=== PATIENT | male | born 1970 | race Two or more races ===

== ENCOUNTER 2024-09-13 09:29 | Inpatient (IN) | payer MEDICAID, OTHER ==
[~2024-09-13] VITALS: Ht 175.3 cm; Wt 89.3 kg
--- NOTE | 2024-09-13 09:51 | ED.PDOC ---
History of Present Illness HPI Comments 53Y M presents to ED for chief complaint lower abd pain [id number]. Pt states abd pain occasionally radiates to testicle region. Pt denies chest pain, SOB, and n/v/d. Pt has taken Ibuprofen and Nexium without relief. No other symptoms reported. Chief Complaint: Abdominal Pain Time Seen by MD: 09:41 Reviewed Notes: Nurses Notes, Medications, Allergies Allergies: Coded Allergies: NO KNOWN ALLERGIES (Unverified , 09/13/24) Information Source: Patient Mode of Arrival: Ambulatory Severity: Mild Timing: Months Duration: Since onset Past Medical History PAST MEDICAL HISTORY: Denies Surgical History: Tonsillectomy Family History Family History: Unknown Social History Smoker: Non-Smoker Alcohol: Denies ETOH Use Drugs: Denies Drug Use Lives In: Home Constitutional: denies: chills, diaphoresis, fatigue, fever, malaise, sweats, weakness, others EENTM: denies: blurred vision, double vision, ear bleeding, ear discharge, ear drainage, ear pain, ear ringing, eye pain, eye redness, hearing loss, mouth pain, mouth swelling, nasal discharge, nose bleeding, nose congestion, nose pain, photophobia, tearing, throat pain, throat swelling, voice changes, others Respiratory: denies: cough, hemoptysis, orthopnea, SOB at rest, shortness of breath, SOB with excertion, stridor, wheezing, others Cardiovascular: denies: chest pain, dizzy spells, diaphoresis, Dyspnea on exe rtion, edema, irregular heart beat, left arm pain, lightheadedness, palpitations, PND, syncope, others Gastrointestinal: reports: abdominal pain; denies: abdomen distended, blood streaked bowels, constipated, diarrhea, dysphagia, difficulty swallowing, hematemesis, melena, nausea, poor appetite, poor fluid intake, rectal bleeding, rectal pain, vomiting, others Genitourinary: reports: testicle pain; denies: burning, dysuria, flank pain, frequency, hematuria, incontinence, penile discharge, penile sore, pain, testicle swelling, urgency, others Neurological: denies: dizziness, fainting, headache, left sided numbness, left sided weakness, numbness, paresthesia, pre-existing deficit, right sided numbness, right sided weakness, seizure, speech problems, tingling, tremors, weakness, others Musculoskeletal: denies: back pain, gout, joint pain, joint swelling, muscle pain, muscle stiffness, neck pain, others Integumetry: denies: bruises, change in color, change in hair/nails, dryness, laceration, lesions, lumps, rash, wounds, others Allergic/Immunocompromised: denies: Difficulty Healing, Frequent Infections, Hives, Itching, others Hematologic/Lymphatic: denies: anemia, blood clots, easy bleeding, easy bruising, swollen glands, others Endocrine: denies: excessive hunger, excessive sweating, excessive thirst, excessive urination, flushing, intolerance to cold, intolerance to heat, unexplained weight gain, unexplained weight loss, others Psychiatric: denies: anxiety, bipolar disorder, depression, hopeless, panic disorder, schizophrenia, sleepless, suicidal, others All Other Systems: Reviewed and Negative Physical Exam General Appearance: No Apparent Distress, Normal HEENT: Normal ENT Inspection, Pharynx Normal, TMs Normal Neck: Full Range of Motion, Non-Tender, Normal, Normal Inspection Respiratory: Chest Non-Tender, Lungs Clear, No Accessory Muscle Use, No Respiratory Distress, Normal Breath Sounds Cardiovascular: No Edema, No JVD, No Murmur, No Gallop, Normal Peripheral Pulses, Regular Rate/Rhythm Breast Exam: Deferred Gastrointestinal: LLQ, No Pulsatile Mass, RLQ, Tenderness Genitalia: Deferred Pelvic: Deferred Rectal: Deferred Extremities: No calf tenderness, Normal capillary refill, Normal inspection, Normal range of motion, Non-tender, No pedal edema Musculoskeletal : Apperance: Normal Neurologic: Alert, dialysis patient care technician II-XII nml as Tested, No Motor Deficits, Normal Affect, Normal Mood, No Sensory Deficits Cerebellar Function: NOT DONE Reflexes: NOT DONE Skin: Dry, Normal Color, Warm Lymphatic: No Adenopathy Was a procedure done? Was a procedure done?: No Differential Dx Considerations may include: Electrolyte abnormality, viral syndrome, gastritis, gastroenteritis, colitis X-Ray, Labs, Meds, VS Vital Signs Date Time Temp Pulse Resp B/P (MAP) Pulse Ox O2 Delivery O2 Flow Rate FiO2 09/13/24 11:57 97.1 71 18 126/85 (99) 96 97.1 09/13/24 10:52 70 16 120/77 09/13/24 10:19 76 18 136/85 09/13/24 10:00 76 18 97 Room Air* 0 21 09/13/24 10:00 98.6 76 16 136/85 (102) 97 98.6 09/13/24 09:40 97.0 75 18 149/87 (107) 98 09/13/24 09:38 79 Lab Test 09/13/24 10:49 09/13/24 10:10 09/13/24 09:53 Range/Units Troponin I High Sensitivity < 3 L < 3 L </=54 ng/L Urine Color Light-yellow Yellow Urine Clarity Clear Clear Urine pH 7.5 5.0-9.0 Urine Specific [place] 1.020 1.001-1.035 Urine Protein Negative Negative Urine Ketones Negative Negative Urine Blood Negative Negative /uL Urine Nitrite Negative Negative Urine Bilirubin Negative Negative Urine Urobilinogen Normal Negative mg/dL Urine Leukocyte Esterase Negative Negative /uL Urine RBC 2 0 - 3 /hpf Urine Microscopic WBC < 1 0-3 /HPF Urine Squamous Epithelial Cells Few <5 /hpf Urine Bacteria None seen None Seen /hpf Urine Glucose Normal Normal mg/dL White Blood Count 5.1 4.4-10.8 10^3/uL Red Blood Count 5.39 4.5-5.90 10^6/uL Hemoglobin 16.4 13.5-17.5 g/dL Hematocrit 49.4 41.0-53.0 % Mean Corpuscular Volume 91.7 80.0-100.0 fL Mean Corpuscular Hemoglobin 30.4 28.0-32.0 pg Mean Corpuscular Hemoglobin Concent 33.2 32.0-36.0 g/dL Red Cell Distribution Width 13.6 11.8-14.3 % Platelet Count 283 140-450 10^3/uL Mean Platelet Volume 7.6 6.9-10.8 fL Neutrophils (%) (Auto) 67.2 37.0-80.0 % Lymphocytes (%) (Auto) 19.3 10.0-50.0 % Monocytes (%) (Auto) 10.5 0.0-12.0 % Eosinophils (%) (Auto) 2.4 0.0-7.0 % Basophils (%) (Auto) 0.6 0.0-2.0 % Neutrophils # (Auto) 3.4 1.6-8.6 10 ^3/uL Lymphocytes # (Auto) 1.0 0.4-5.4 10 ^3/uL Monocytes # (Auto) 0.5 0-1.3 10 ^3/uL Eosinophils # (Auto) 0.1 0-0.8 10 ^3/uL Basophils # (Auto) 0 0-0.2 10 ^3/uL Nucleated Red Blood Cells 0.1 % Sodium Level 138 136-145 mmol/L Potassium Level 4.2 3.5-5.1 mmol/L Chloride Level 102 98-107 mmol/L Carbon Dioxide Level 30 20-31 mmol/L Anion Gap 6 5-15 Blood Urea Nitrogen 18 9-23 mg/dL Creatinine 0.95 0.700-1.30 mg/dL Glomerular Filtration Rate Calc 95 >90 mL/min BUN/Creatinine Ratio 18.9 10.0-20.0 Serum Glucose 107 H 74-106 mg/dL Lactic Acid Level 1.1 0.4-2.0 mmol/L Calcium Level 10.2 8.7-10.4 mg/dL Total Bilirubin 0.6 0.2-1.0 mg/dL Aspartate Amino Transferase (AST) 15 13-40 U/L Alanine Aminotransferase (ALT) 19 7-40 U/L Alkaline Phosphatase 84 46-116 U/L B-Type Natriuretic Peptide 6.77 0-100 pg/mL Total Protein 7.5 5.7-8.2 g/dL Albumin 4.6 3.2-4.8 g/dL Current Medications Medications (Trade) Dose Ordered Sig/Antony Route Start Time Stop Time Status Last Admin Sodium Chloride 1,000 ml @ 1,000 mls/hr Q1H ONCE IV 09/13/24 09:45 09/13/24 10:44 DC 09/13/24 10:13 Ondansetron HCl (Zofran) 4 mg ONCE ONCE IV 09/13/24 09:45 09/13/24 10:08 DC 09/13/24 10:18 Morphine Sulfate 4 mg ONCE ONCE IV 09/13/24 09:45 09/13/24 10:08 DC 09/13/24 10:19 [facility] [id number] [place] [id number] Ph: [phone] DIAGNOSTIC IMAGING Diagnostic Imaging Report : [id number] Signed PATIENT: DESHAWN COREASUROACCT: [id number] UNIT: [id number] : 1970 LOC: ER ROOM / BED: / AGE / SEX: 53 / M ADM STATUS: REG ER SERVICE ORDERING PHYSICIAN: AMI WINN MD PROCEDURE(s): CXR2 - CHEST TWO VIEWS ROUTINE REASON: abdominal pain ORDER NUMBER(s): [id number], ACCESSION NUMBER(s): [id number] CHEST TWO VIEWS ROUTINE CLINICAL HISTORY: abdominal pain COMPARISON: None TECHNIQUE: Frontal and lateral view of the chest was obtained FINDINGS: Lines and Tubes: None Lungs: No focal consolidation. Pleura: No effusion. No pneumothorax. Cardiomediastinal contours: Unremarkable Bones: No acute osseous abnormality. IMPRESSION: No acute cardiopulmonary disease. ATED BY: CHITO BAKER MD DICTATED DATE/TIME: 09/13/24 1011 SIGNED BY: CHITO BAKER MD SIGNED DATE/TIME: 09/13/24 1011 CC: [place] [id number] Ph: [phone] DIAGNOSTIC IMAGING Diagnostic Imaging Report : [id number] Signed PATIENT: CHRISTOPHER COREAST: [id number] UNIT: [id number] : 1970 LOC: ER ROOM / BED: / AGE / SEX: 53 / M ADM STATUS: REG ER SERVICE ORDERING PHYSICIAN: AMI WINN MD PROCEDURE(s): ABPLIV - CT AB PEL WITH IV CON ONLY REASON: lower abdominal pain ORDER NUMBER(s): [id number], ACCESSION NUMBER(s): [id number] Exam: CT CT AB PEL WITH IV CON ONLY History: lower abdominal pain Comparison Study: None available at time of dictation. Technique: Multidetector spiral CT of the abdomen was performed from lung bases to pubic symphysis. Axial imaging was performed with intravenous contrast following the uneventful administration of 100 ml Omnipaque 300. Coronal and sagittal multiplanar reformats were obtained from the axial data set by the technologist. Radiation Dose : 1. Abdomen/Pelvis: CTDIvol 11.98 mGy, DLP 745. mGy*cm. Findings: Lung Bases: Lung bases are clear. Visualized portions of the heart and per icardium are unremarkable. Liver: The liver is normal in size. No focal lesions. Gallbladder and Biliary Tree: Gallstone. No intrahepatic or extrahepatic biliary ductal dilatation. Spleen: Unremarkable Pancreas: The pancreas enhances normally and there are no focal lesions. The main pancreatic duct is not dilated Adrenal Glands: Unremarkable Kidneys: Kidneys enhance symmetrically. No calculi or hydronephrosis. GI tract: Small hiatal hernia. No evidence of small bowel wall thickening or abnormal dilatation to suggest bowel obstruction. Scattered colonic diverticula. No acute diverticulitis. The appendix is visualized and is normal in caliber. Peritoneum/mesentery/retroperitoneum. No evidence of free intraperitoneal air. No ascites. No evidence of suspicious lymphadenopathy. Abdominal Wall: Unremarkable. Vasculature: Abdominal aorta and main branches are unremarkable. Normal vascular enhancement. Urinary Bladder: Grossly unremarkable for degree of distention. Pelvic Organs: Prostate is enlarged measuring 5.4 cm in transverse diameter. Musculoskeletal: No aggressive focal bony lesions, acute fractures or dislocati on. Intervertebral disc degeneration at L5-S1. IMPRESSION: 1. No acute abdominal or pelvic findings. 2. Sigmoid diverticulosis without acute diverticulitis. 3. Gallstones. HS:Y ATED BY: ANN BATES MD DICTATED DATE/TIME: 09/13/241246 SIGNED BY: ANN BATES MD SIGNED DATE/TIME: 09/13/241246 CC: Time of 1ST Reevaluation: 10:11 Reevaluation 1ST: Unchanged Patient Education/Counseling: Diagnosis, Treatment Family Education/Counseling: No Family Present Departure 1 Departure Time of Disposition: 13:37 (Patient presented with abdominal pain that was concerning for possible appendicits, gastritis, cholecystitis, colitis, gastroe nteritis, sbo, or orther possible surgical emergency. Data: 1. I ordered and reviewed the result of at least 3 labs including a CBC, BMP, and Urinalysis. 2. I independently interpreted the following tests: CT Abdoment and Pelvis is concerning for benign abdomen .Risk:This patient has a high risk of morbidity due to further diagnostic testing or treatment and may suffer from an acute abdominal process disorder. Workup reveals intractable abdominal pain and abnormal EKG and patient should be admitted for further workup. and possible expert consultation. ) Impression: Primary Impression: Abnormal EKG Additional Impression: Abdominal pain Qualified Codes: R10.84 - Generalized abdominal pain Disposition: ADMITTED INPATIENT Admit to: Med Surg Condition: Serious Critical Care Note Critical Care Time?: No Stability Stability form required: No Heart Score Heart Score: Heart Score Response (Comments) Value History Moderate Suspicious [address]-Deviation 2 Age 45-64 1 Risk Factors No known risk factors 0 Troponin Normal limit 0 Total 4 I personally scribed for AMI WINN MD ([facility] on 09/13/24 at 09:51. Electronically submitted by Leslie Parker ([employer]ge). I personally scribed for AMI WINN MD ([facility]) on 09/13/24 at 10:37. Electronically submitted by Leslie Parker (Urge). I personally scribed for AMI WINN MD ([facility]) on 09/13/24 at 12:52. Electronically submitted by Leslie Parker (Urge). AMI WINN MD Sep 13, 2024 09:51
[2024-09-13 10:00] VITALS: PULSE 76; RESP 18; O2SAT 97
[2024-09-13] MEDS: SODIUM CHLORIDE 0.9% 1,000 ML IV ONE (10:13)
--- NOTE | 2024-09-13 10:14 | DVH ---
XY CHEST TWO VIEWS ROUTINE CLINICAL HISTORY: abdominal pain COMPARISON: None TECHNIQUE: Frontal and lateral view of the chest was obtained FINDINGS: Lines and Tubes: None Lungs: No focal consolidation. Pleura: No effusion. No pneumothorax. Cardiomediastinal contours: Unremarkable Bones: No acute osseous abnormality. IMPRESSION: No acute cardiopulmonary disease.
[2024-09-13 10:15] LABS: Basophils # (auto) 0 10 ^3/uL (0-0.2); Basophils % (auto) 0.6 % (0.0-2.0); Eosinophils # (auto) 0.1 10 ^3/uL (0-0.8); Eosinophils % (auto) 2.4 % (0.0-7.0); Hematocrit 49.4 % (41.0-53.0); Hemoglobin 16.4 g/dL (13.5-17.5); Lymphocytes % (auto) 19.3 % (10.0-50.0); Mean Corpuscular Hemoglobin 30.4 pg (28.0-32.0); Mean Corpuscular Hgb Conc. 33.2 g/dL (32.0-36.0); Mean Corpuscular Volume 91.7 fL (80.0-100.0); Monocytes # (auto) 0.5 10 ^3/uL (0-1.3); Monocytes % (auto) 10.5 % (0.0-12.0); Neutrophils # (auto) 3.4 10 ^3/uL (1.6-8.6); Neutrophils % (auto) 67.2 % (37.0-80.0); Nucleated Red Blood Cells % 0.1 %; Platelet Count (auto) 283 10^3/uL (140-450); Red Blood Cells 5.39 10^6/uL (4.5-5.90); Red Cell Distribution Width 13.6 % (11.8-14.3); White Blood Cell 5.1 10^3/uL (4.4-10.8)
[2024-09-13] MEDS: ONDANSETRON HCL 4 MG/2 ML VIAL IV ONE (10:18)
[2024-09-13] MEDS: MORPHINE SULFATE 4 MG/ML SYR/VIAL IV ONE (10:19)
[2024-09-13 12:06] LABS: Alanine Aminotransferase 19 U/L (7-40); Albumin 4.6 g/dL (3.2-4.8); Anion Gap 6 (5-15); Aspartate Aminotransferase 15 U/L (13-40); BUN/Creatinine Ratio 18.9 (10.0-20.0); Blood Urea Nitrogen 18 mg/dL (9-23); Calcium 10.2 mg/dL (8.7-10.4); Carbon Dioxide 30 mmol/L (20-31); Chloride 102 mmol/L (98-107); Potassium 4.2 mmol/L (3.5-5.1); Sodium 138 mmol/L (136-145)
[2024-09-13 12:07] LABS: Bilirubin, Total 0.6 mg/dL (0.2-1.0); Total Protein 7.5 g/dL (5.7-8.2)
[2024-09-13 12:09] LABS: Urine Bacteria None Seen /hpf (None Seen)
[2024-09-13 12:17] LABS: Glucose 107 mg/dL (74-106)
--- NOTE | 2024-09-13 12:50 | DVH ---
Exam: CT CT AB PEL WITH IV CON ONLY History: lower abdominal pain Comparison Study: None available at time of dictation. Technique: Multidetector spiral CT of the abdomen was performed from lung bases to pubic symphysis. Axial imaging was performed with intravenous contrast following the uneventful administration of 100 ml Omnipaque 300. Coronal and sagittal multiplanar reformats were obtained from the axial data set b y the technologist. Radiation Dose : 1. Abdomen/Pelvis: CTDIvol 11.98 mGy, DLP 745. mGy*cm. Findings: Lung Bases: Lung bases are clear. Visualized portions of the heart and pericardium are unremarkable. Liver: The liver is normal in size. No focal lesions. Gallbladder and Biliary Tree: Gallstone. No intrahepatic or extrahepatic biliary ductal dilatation. Spleen: Unremarkable Pancreas: The pancreas enhances normally and there are no focal lesions. The main pancreatic duct i s not dilated Adrenal Glands: Unremarkable Kidneys: Kidneys enhance symmetrically. No calculi or hydronephrosis. GI tract: Small hiatal hernia. No evidence of small bowel wall thickening or abnormal dilatation to s uggest bowel obstruction. Scattered colonic diverticula. No acute diverticulitis. The appendix is vi sualized and is normal in caliber. Peritoneum/mesentery/retroperitoneum. No evidence of free intraperitoneal air. No ascites. No evidenc e of suspicious lymphadenopathy. Abdominal Wall: Unremarkable. Vasculature: Abdominal aorta and main branches are unremarkable. Normal vascular enhancement. Urinary Bladder: Grossly unremarkable for degree of distention. Pelvic Organs: Prostate is enlarged measuring 5.4 cm in transverse diameter. Musculoskeletal: No aggressive focal bony lesions, acute fractures or dislocation. Intervertebral dis c degeneration at L5-S1. IMPRESSION: 1. No acute abdominal or pelvic findings. 2. Sigmoid diverticulosis without acute diverticulitis. 3. Gallstones. HS:Y
[2024-09-13 12:56] LABS: Urine Blood Negative /uL (Negative); Urine Clarity Clear (Clear); Urine Color Light-Yellow (Yellow); Urine Protein, UAD Negative (Negative); Urine Squamous Epithelial Cell FEW /hpf (<5); Urine Urobilinogen Normal (Negative); Urine WBC < 1 /HPF (0-3); Urine pH 7.5 (5.0-9.0)
[2024-09-13 13:05] LABS: Alkaline Phosphatase 84 U/L (46-116)
[2024-09-13] MEDS ORDERED: ACETAMINOPHEN 325 MG TAB PO PRN (15:00)
[2024-09-13] MEDS ORDERED: MORPHINE SULFATE INJ 2 MG/ml SYRG IV PRN (15:00)
[2024-09-13] MEDS ORDERED: DOCUSATE SOD 100 MG CAP PO PRN (15:00)
[2024-09-13] MEDS ORDERED: NITROGLYCERIN 0.4 MG SL TAB SL PRN (15:00)
[2024-09-13] MEDS ORDERED: ONDANSETRON HCL 4 MG/2 ML VIAL IV PRN (15:00)
--- NOTE | 2024-09-13 15:07 | DVHHP2 ---
History of Present Illness Reason for Visit: Abdominal pain History of Present Illness Bar Calle is a 53-year-old male with no significant past medical history, however he also states he does not go to the doctor. Patient states he came in today for abdominal pain. Patient states he has been experiencing intermittent abdominal pain for about 1 month. He came in today due to it worsening. Denies any nausea, vomiting or diarrhea. Patient has taken ibuprofen and Nexium without any relief. Patient had an EKG completed in the ER that was abnormal. Patient denies any history of chest pain, palpitations, and shortness of breath. Patient will be admitted for further workup. At time of assessment he states his abdominal pain has improved from the medications given by ER. Past Surgical History: Tonsillectomy Family History: None Smoke: No ALCOHOL: none Drugs: None Lives: with Family Domestic Violence: Neg Review of Systems Constitutional: No: Fever, Chills, Sweats, Weakness, Malaise, Other Eyes: No: Pain, Vision change, Conjunctivae inflammation, Eyelid inflammation, Other, Redness ENT: No: Ear pain, Ear discharge, Nose pain, Nose discharge, Nose congestion, Mouth pain, Mouth swelling, Throat pain, Throat swelling, Other Respiratory: No: Cough, Dry, Shortness of breath, SOB with excertion, Wheezing, Hemoptysis, Pleuritic Pain, Sputum, Wheezing, Other Cardiovascular: No: Chest Pain, Palpitations, Orthopnea, Paroxysmal Noc. Dyspnea, Edema, Lt Headedness, Other Gastrointestinal: Abdominal Pain; No: Nausea, Vomiting, Diarrhea, Constipation, Melena, Hematochezia, Other Genitourinary: No Dysuria, No Frequency, No Incontinence, No Hematuria, No Retention, No Other Musculoskeletal: No: other, neck pain, shoulder pain, arm pain, back pain, hand pain, leg pain, foot pain Skin: No: Rash, Lesions, Jaundice, Bruising, Other Neurological: No: Weakness, Numbness, Incoordination, Change in speech, Confusion, Seizures, Other Allergies: Coded Allergies: NO KNOWN ALLERGIES (Unverified , 09/13/24) Medications Current Medications Medications Dose Ordered Sig/Antony Route Start Time Stop Time Status Last Admin Dose Admin Sodium Chloride 10 ml Q8HR IV 09/13/24 22:00 UNV Acetaminophen/ Hydrocodone Bitart 1 tab Q4HP PRN PO 09/13/24 15:00 UNV Ondansetron HCl 4 mg Q4HP PRN IV 09/13/24 15:00 UNV Docusate Sodium 100 mg BIDPRN PRN PO 09/13/24 15:00 UNV Acetaminophen 650 mg Q6HP PRN PO 09/13/24 15:00 UNV Nitroglycerin 0.4 mg Q5MINP PRN SL 09/13/24 15:00 UNV Morphine Sulfate 2 mg Q30M PRN IV 09/13/24 15:00 UNV Aspirin 81 mg DAILY PO 09/14/24 10:00 UNV Atorvastatin Calcium 20 mg HS PO 09/13/24 22:00 UNV Exam Vital Signs Vital Signs Date Time Temp Pulse Resp B/P (MAP) Pulse Ox O2 Delivery O2 Flow Rate FiO2 09/13/24 11:57 97.1 71 18 126/85 (99) 96 97.1 09/13/24 10:00 Room Air* 0 21 General Appearance: Alert, Oriented X3, Cooperative, mild distress HEENT: Atraumatic, PERRLA, Mucous membr. moist/pink Respiratory: Clear to auscultation, Normal air movement Cardiovascular: Regular rate, Normal S1, Normal S2, No murmurs Abdominal: Normal bowel sounds, Soft, No tenderness, No hepatospenomegaly Extremities: No clubbing, No cyanosis, No edema, Normal pulses Skin: No rashes, No breakdown, No significant lesion Neuro: Normal gait, Normal speech, Strength at 5/5 X4 ext Psych/Mental Status: Mental status NL, Mood NL Labs/Xrays Labs Test 09/13/24 10:49 09/13/24 10:10 09/13/24 09:53 Range/Units Troponin I High Sensitivity < 3 L </=54 ng/L Urine Color Light-yellow Yellow Urine Clarity Clear Clear Urine pH 7.5 5.0-9.0 Urine Specific [place] 1.020 1.001-1.035 Urine Protein Negative Negative Urine Ketones Negative Negative Urine Blood Negative Negative /uL Urine Nitrite Negative Negative Urine Bilirubin Negative Negative Urine Urobilinogen Normal Negative mg/dL Urine Leukocyte Esterase Negative Negative /uL Urine RBC 2 0 - 3 /hpf Urine Microscopic WBC < 1 0-3 /HPF Urine Squamous Epithelial Cells Few <5 /hpf Urine Bacteria None seen None Seen /hpf Urine Glucose Normal Normal mg/dL White Blood Count 5.1 4.4-10.8 10^3/uL Red Blood Count 5.39 4.5-5.90 10^6/uL Hemoglobin 16.4 13.5-17.5 g/dL Hematocrit 49.4 41.0-53.0 % Mean Corpuscular Volume 91.7 80.0-100.0 fL Mean Corpuscular Hemoglobin 30.4 28.0-32.0 pg Mean Corpuscular Hemoglobin Concent 33.2 32.0-36.0 g/dL Red Cell Distribution Width 13.6 11.8-14.3 % Platelet Count 283 140-450 10^3/uL Mean Platelet Volume 7.6 6.9-10.8 fL Neutrophils (%) (Auto) 67.2 37.0-80.0 % Lymphocytes (%) (Auto) 19.3 10.0-50.0 % Monocytes (%) (Auto) 10.5 0.0-12.0 % Eosinophils (%) (Auto) 2.4 0.0-7.0 % Basophils (%) (Auto) 0.6 0.0-2.0 % Neutrophils # (Auto) 3.4 1.6-8.6 10 ^3/uL Lymphocytes # (Auto) 1.0 0.4-5.4 10 ^3/uL Monocytes # (Auto) 0.5 0-1.3 10 ^3/uL Eosinophils # (Auto) 0.1 0-0.8 10 ^3/uL Basophils # (Auto) 0 0-0.2 10 ^3/uL Nucleated Red Blood Cells 0.1 % Sodium Level 138 136-145 mmol/L Potassium Level 4.2 3.5-5.1 mmol/L Chloride Level 102 98-107 mmol/L Carbon Dioxide Level 30 20-31 mmol/L Anion Gap 6 5-15 Blood Urea Nitrogen 18 9-23 mg/dL Creatinine 0.95 0.700-1.30 mg/dL Glomerular Filtration Rate Calc 95 >90 mL/min BUN/Creatinine Ratio 18.9 10.0-20.0 Serum Glucose 107 H 74-106 mg/dL Lactic Acid Level 1.1 0.4-2.0 mmol/L Calcium Level 10.2 8.7-10.4 mg/dL Total Bilirubin 0.6 0.2-1.0 mg/dL Aspartate Amino Transferase (AST) 15 13-40 U/L Alanine Aminotransferase (ALT) 19 7-40 U/L Alkaline Phosphatase 84 46-116 U/L B-Type Natriuretic Peptide 6.77 0-100 pg/mL Total Protein 7.5 5.7-8.2 g/dL Albumin 4.6 3.2-4.8 g/dL XY CHEST TWO VIEWS ROUTINE FINDINGS: Lines and Tubes: None Lungs: No focal consolidation. Pleura: No effusion. No pneumothorax. Cardiomediastinal contours: Unremarkable Bones: No acute osseous abnormality. IMPRESSION: No acute cardiopulmonary disease. Exam: CT CT AB PEL WITH IV CON ONLY Findings: Lung Bases: Lung bases are clear. Visualized portions of the heart and pericardium are unremarkable. Liver: The liver is normal in size. No focal lesions. Gallbladder and Biliary Tree: Gallstone. No intrahepatic or extrahepatic biliary ductal dilatation. Spleen: Unremarkable Pancreas: The pancreas enhances normally and there are no focal lesions. The main pancreatic duct is not dilated Adrenal Glands: Unremarkable Kidneys: Kidneys enhance symmetrically. No calculi or hydronephrosis. GI tract: Small hiatal hernia. No evidence of small bowel wall thickening or a bnormal dilatation to suggest bowel obstruction. Scattered colonic diverticula. No acute diverticulitis. The appendix is visualized and is normal in caliber. Peritoneum/mesentery/retroperitoneum. No evidence of free intraperitoneal air. No ascites. No evidence of suspicious lymphadenopathy. Abdominal Wall: Unremarkable. Vasculature: Abdominal aorta and main branches are unremarkable. Normal vascular enhancement. Urinary Bladder: Grossly unremarkable for degree of distention. Pelvic Organs: Prostate is enlarged measuring 5.4 cm in transverse diameter. Musculoskeletal: No aggressive focal bony lesions, acute fractures or disloc ation. Intervertebral disc degeneration at L5-S1. IMPRESSION: 1. No acute abdominal or pelvic findings. 2. Sigmoid diverticulosis without acute diverticulitis. 3. Gallstones. Assessment/Plan Assessment/Plan Assessment: Abnormal EKG, Intractable abdominal pain, Diverticulosis, Gallstones, Plan: Admit to Tele, Cardiology consult, GI consult, ASA daily, Start statin, Lipid panel, A1c, Plan discussed with: Patient My Orders Orders - YUMIKO GRAJEDA Procedure Category Date Status Time Admit ADMIT 09/13/24 Transmitted 14:52 Code Status CODE 09/13/24 Transmitted 14:52 2 Gm Sodium Diet DIET 09/13/24 Transmitted Dinner Sodium Chloride Lock PHA 09/13/24 Logged (Saline Lock Ns) 22:00 Hydrocodone-Acet PHA 09/13/24 Logged 5/325mg Tab ([place] 15:00 Ondansetron Hcl PHA 09/13/24 Logged (Zofran) 15:00 Docusate Sodium PHA 09/13/24 Logged Capsule (Colace 15:00 Complete Blood Count LAB 09/14/24 Verified 04:00 Comprehensive LAB 09/14/24 Verified Metabolic Panel 04:00 Condition: Serious MADI 09/13/24 In Process 14:52 Acetaminophen Tablet PHA 09/13/24 Logged (Tylenol Tablet) 15:00 Nitroglycerin PHA 09/13/24 Logged Sublingual (Ntrostat 15:00 Morphine Sulfate PHA 09/13/24 Logged Injection 15:00 Stat Ekg For Chest MADI 09/13/24 In Process Pain 14:52 Notify Md Of Changes [facility] 09/13/24 In Process From Base 14:52 Pin Machine Tender For MADI 09/13/24 In Process 24 Hours 14:52 Emergency Dysrhythmia [facility] 09/13/24 In Process Protocol 14:52 Rhythm Strips Once [facility] 09/13/24 In Process Every Shift 14:52 Oxygen By Nasal RT 09/13/24 Transmitted Cannula 14:52 * Cardiology Consult CONS 09/13/24 Transmitted 14:52 Electrocardigram EKG 09/13/24 Logged 14:54 * Gi Dvh Erp Engineer CONS 09/13/24 Transmitted 14:55 Aspirin Tablet PHA 09/14/24 Transmitted 10:00 Aspirin Tablet PHA 09/13/24 Transmitted 15:00 Atorvastatin (Lipitor) PHA 09/13/24 Transmitted 22:00 Date of Service: Sep 13, 2024 Billing Provider: YUMIKO GRAJEDA Common Visit Codes: [id number] INP/OBS CARE (MOD) YUMIKO GRAJEDA Sep 13, 2024 15:07
[2024-09-13 17:32] LABS: CRP High Sensitivity 0.31 mg/dL (<1.0)
[2024-09-13] MEDS: ASPirin 81 mg TAB PO ONE (17:34)
--- NOTE | 2024-09-13 18:01 | ECG ---
[facility] Test Date: 2024-09-13 Test Time: 09:38:49 Pat Name: FREDDY MACEDO Department: ER Room: [address] [place] [address] Gender: M [employer]dl Driver: BRAD : 1970 Requested By: AMI WINN Order Number: [id number] Reading MD: Chema Daniels Measurements Intervals [place] Rate: 79 P: 55 CT: 158 QRS: 169 QRSD: 151 T: 12 QT: 412 QTc: 473 Interpretive Statements Sinus rhythm RBBB and LPFB Inferior infarct, old Lateral infarct, acute Baseline wander in lead(s) II,III,aVF Electronically Signed On 09-14-2024 11:59:59 PST by Chema Daniels Please click the below link to view image of tracing.
--- NOTE | 2024-09-13 18:45 | DVHCONRES ---
Date Seen: Sep 13, 2024 Resident Creating Document: SANJAY HUGGINS RESIDENT Referring Physician MELINDA Gregory Reason for Consultation Abnormal EKG History of Present Illness This is a 53-year-old male who comes into the ED with chief complain of abdominal pain. He has no significant past medical history. He has a past medical history relevant for tonsillectomy. No relevant family history. Past social history is also unremarkable, no smoking, no alcohol and no drug abuse. Patient stated that he has been experiencing lower abdominal pain for the last month, he says it is mostly intermittent but since last week it has been constant, pressure-like, ibuprofen has provided mild relief. He denies any chest pain, shortness of breath, dizziness, lightheadedness, nausea, vomiting. He also denies any numbness, weakness, tingling. In the ED they performed a chest x-ray which was unremarkable, a CT of the abdomen did not show any acute finding. An EKG demonstrated a heart rate of 80, regular rhythm, right axis deviation, no signs of hypertrophy, no ST changes, an RBBB, with LPFB. Patient's blood work was unremarkable, he continues to state having mild lower quadrant abdominal pain, he was admitted for further investigation and management. Allergies: Coded Allergies: NO KNOWN ALLERGIES (Unverified , 09/13/24) Current Medications Current Medications Medications (Trade) Dose Ordered Sig/Antony Route PRN Reason Start Time Stop Time Status Last Admin Sodium Chloride (Saline Lock Ns) 10 ml Q8HR IV 09/13/24 22:00 Acetaminophen/ Hydrocodone Bitart (Arnett 5/325MG Tab) 1 tab Q4HP PRN PO MODERATE PAIN (4-6 PAIN SCALE) 09/13/24 15:00 Ondansetron HCl (Zofran) 4 mg Q4HP PRN IV NAUSEA / VOMITING 09/13/24 15:00 Docusate Sodium (Colace Capsule) 100 mg BIDPRN PRN PO FOR CONSTIPATION 09/13/24 15:00 Acetaminophen (Tylenol Tablet) 650 mg Q6HP PRN PO PAIN SCALE 1-3 OR TEMP>100.4 09/13/24 15:00 Nitroglycerin (Ntrostat Sublingual) 0.4 mg Q5MINP PRN SL FOR CHEST PAIN 09/13/24 15:00 Morphine Sulfate 2 mg Q30M PRN IV FOR CHEST PAIN 09/13/24 15:00 Aspirin 81 mg DAILY PO 09/14/24 10:00 Atorvastatin Calcium (Lipitor) 20 mg HS PO 09/13/24 22:00 Review of Systems Constitutional: Patient denies fevers, chills, sweats and weight changes. Eyes: Patient denies any visual symptoms. Ears, Nose, and Throat: No difficulties with hearing. No symptoms of rhinitis or sore throat. Cardiovascular: Patient denies chest pains, palpitations, orthopnea and paroxysmal nocturnal dyspnea. Respiratory: No dyspnea on exertion, no wheezing or cough. GI: Abdominal pain : No urinary hesitancy or dribbling. No nocturia or urinary frequency. No abnormal urethral discharge. Musculoskeletal: No myalgias, arthralgias or edema. Neurologic: No chronic headaches, no seizures. Patient denies numbness, tingling or weakness. Psychiatric: Patient denies problems with mood disturbance. No problems with anxiety. Endocrine: No excessive urination or excessive thirst. Dermatologic: Patient denies any rashes or skin changes. Vital Signs Vital Signs Date Time Temp Pulse Resp B/P (MAP) Pulse Ox O2 Delivery O2 Flow Rate FiO2 09/13/24 17:21 98.3 77 16 121/78 (92) 96 98.3 09/13/24 10:00 Room Air* 0 21 Physical Exam General: Awake, alert, comfortable appearing, in no acute distress. HEENT: Head is normocephalic and atraumatic. Pupils are equal, round, and reactive to light. Extraocular muscles are intact. No nasal discharge. No facial trauma. Intraoral exam shows moist mucous membranes with no tonsillar enlargeme nt or exudate. Neck: Supple with no cervical lymphadenopathy No meningismus. No goiter. Heart: Regular rate without murmur, rub, or gallop. Lungs: Equal breath sounds bilaterally with no wheezing, rales, or rhonchi. There is no chest wall tenderness or instability. Abdomen: Right upper quadrant pain, De Oliveira positive Extremities: Strong peripheral pulses. There is no clubbing, no cyanosis, and no edema. Skin: No rash. Neurologic: Cranial nerves II-XII intact without motor, sensory, or cerebellar deficit, no asterixis. Labs/Diagnostic Data Labs Test 09/13/24 10:49 09/13/24 10:10 09/13/24 09:53 Range/Units Magnesium Level 2.0 1.6-2.6 mg/dL Troponin I High Sensitivity < 3 L </=54 ng/L C-Reactive Protein High Sensitivity 0.31 <1.0 mg/dL Urine Color Light-yellow Yellow Urine Clarity Clear Clear Urine pH 7.5 5.0-9.0 Urine Specific [place] 1.020 1.001-1.035 Urine Protein Negative Negative Urine Ketones Negative Negative Urine Blood Negative Negative /uL Urine Nitrite Negative Negative Urine Bilirubin Negative Negative Urine Urobilinogen Normal Negative mg/dL Urine Leukocyte Esterase Negative Negative /uL Urine RBC 2 0 - 3 /hpf Urine Microscopic WBC < 1 0-3 /HPF Urine Squamous Epithelial Cells Few <5 /hpf Urine Bacteria None seen None Seen /hpf Urine Glucose Normal Normal mg/dL White Blood Count 5.1 4.4-10.8 10^3/uL Red Blood Count 5.39 4.5-5.90 10^6/uL Hemoglobin 16.4 13.5-17.5 g/dL Hematocrit 49.4 41.0-53.0 % Mean Corpuscular Volume 91.7 80.0-100.0 fL Mean Corpuscular Hemoglobin 30.4 28.0-32.0 pg Mean Corpuscular Hemoglobin Concent 33.2 32.0-36.0 g/dL Red Cell Distribution Width 13.6 11.8-14.3 % Platelet Count 283 140-450 10^3/uL Mean Platelet Volume 7.6 6.9-10.8 fL Neutrophils (%) (Auto) 67.2 37.0-80.0 % Lymphocytes (%) (Auto) 19.3 10.0-50.0 % Monocytes (%) (Auto) 10.5 0.0-12.0 % Eosinophils (%) (Auto) 2.4 0.0-7.0 % Basophils (%) (Auto) 0.6 0.0-2.0 % Neutrophils # (Auto) 3.4 1.6-8.6 10 ^3/uL Lymphocytes # (Auto) 1.0 0.4-5.4 10 ^3/uL Monocytes # (Auto) 0.5 0-1.3 10 ^3/uL Eosinophils # (Auto) 0.1 0-0.8 10 ^3/uL Basophils # (Auto) 0 0-0.2 10 ^3/uL Nucleated Red Blood Cells 0.1 % Sodium Level 138 136-145 mmol/L Potassium Level 4.2 3.5-5.1 mmol/L Chloride Level 102 98-107 mmol/L Carbon Dioxide Level 30 20-31 mmol/L Anion Gap 6 5-15 Blood Urea Nitrogen 18 9-23 mg/dL Creatinine 0.95 0.700-1.30 mg/dL Glomerular Filtration Rate Calc 95 >90 mL/min BUN/Creatinine Ratio 18.9 10.0-20.0 Serum Glucose 107 H 74-106 mg/dL Lactic Acid Level 1.1 0.4-2.0 mmol/L Calcium Level 10.2 8.7-10.4 mg/dL Total Bilirubin 0.6 0.2-1.0 mg/dL Aspartate Amino Transferase (AST) 15 13-40 U/L Alanine Aminotransferase (ALT) 19 7-40 U/L Alkaline Phosphatase 84 46-116 U/L B-Type Natriuretic Peptide 6.77 0-100 pg/mL Total Protein 7.5 5.7-8.2 g/dL Albumin 4.6 3.2-4.8 g/dL Assessment RBBB with LPFB Abdominal pain, rule out cystitis, osteoarthritis, colitis Diverticulosis Cholelithiasis Plan/Recommendation Troponins, BNP and CRP within normal limits. EKG demonstrated RBBB with LPFB, patient will benefit from further workup in the outpatient setting. Patient without significant risk factors for considering any acute intervention. No current indication for inpatient workup. Thank you for allowing us to participate in this patient's care, we will sign off from the case. Case was discussed with Dr. Cadena Plan discussed with: Patient SANJAY HUGGINS RESIDENT Sep 13, 2024 18:45
[2024-09-13] MEDS: ATORVASTATIN 20 MG TAB PO SCH (23:06)
[2024-09-13] MEDS: SODIUM CHLOR 0.9% PF (SALINE LOCK) 10ML VIAL/SYR IV SCH (23:07)
[2024-09-14 03:58] VITALS: BP 111/83; PULSE 70; RESP 18; TEMP 97.9; O2SAT 97
[2024-09-14 07:56] LABS: Basophils # (auto) 0 10 ^3/uL (0-0.2); Basophils % (auto) 0.6 % (0.0-2.0); Eosinophils # (auto) 0.1 10 ^3/uL (0-0.8); Eosinophils % (auto) 1.3 % (0.0-7.0); Hematocrit 44.1 % (41.0-53.0); Lymphocytes # (auto) 1.1 10 ^3/uL (0.4-5.4); Lymphocytes % (auto) 15.9 % (10.0-50.0); Mean Corpuscular Volume 91.2 fL (80.0-100.0); Monocytes # (auto) 0.7 10 ^3/uL (0-1.3); Monocytes % (auto) 9.4 % (0.0-12.0); Neutrophils # (auto) 5.2 10 ^3/uL (1.6-8.6); Neutrophils % (auto) 72.8 % (37.0-80.0); Platelet Count (auto) 273 10^3/uL (140-450); Red Blood Cells 4.84 10^6/uL (4.5-5.90); Red Cell Distribution Width 13.6 % (11.8-14.3); White Blood Cell 7.2 10^3/uL (4.4-10.8)
[2024-09-14] MEDS: ASPirin 81 mg TAB PO SCH (08:59)
[2024-09-14 09:02] VITALS: BP 122/79; PULSE 79; RESP 18; TEMP 97.8; O2SAT 97
[2024-09-14 09:15] LABS: Alanine Aminotransferase 15 U/L (7-40); Albumin 4.5 g/dL (3.2-4.8); Alkaline Phosphatase 70 U/L (46-116); Anion Gap 6 (5-15); Aspartate Aminotransferase 13 U/L (13-40); BUN/Creatinine Ratio 16.3 (10.0-20.0); Blood Urea Nitrogen 14 mg/dL (9-23); Carbon Dioxide 27 mmol/L (20-31); Chloride 104 mmol/L (98-107); Cholesterol 199 mg/dL (< 200); Glucose 118 mg/dL (74-106); Sodium 137 mmol/L (136-145); Total Protein 7.4 g/dL (5.7-8.2)
[2024-09-14 09:16] LABS: Triglycerides 98 mg/dL (< 150)
[2024-09-14 09:17] LABS: LDL Cholesterol 147 mg/dL (< 100)
[2024-09-14 09:21] LABS: HDL Cholesterol 42 mg/dL (40-59)
[2024-09-14 09:28] LABS: Bilirubin, Total 0.6 mg/dL (0.2-1.0)
[2024-09-14 13:00] VITALS: BP 123/86; PULSE 85; RESP 20; TEMP 98.7; O2SAT 95
--- NOTE | 2024-09-14 14:31 | DVHPN2 ---
Reviewed: Care Plan, H&P, Labs, Medications, Previous Orders, Radiology Changes from previous H/P or p: No Changes General: Per HPI Eyes: No Pain, No Vision change, No Conjunctivae inflammation, No Eyelid inflammation, No Other, No Redness ENT: No Ear pain, No Ear discharge, No Nose pain, No Nose discharge, No Nose congestion, No Mouth pain, No Mouth swelling, No Throat pain, No Throat swelling, No Other Cardiovascular: No Chest Pain, No Palpitations, No Orthopnea, No Paroxysmal Noc. Dyspnea, No Edema, No Lt Headedness, No Other Respiratory: No Cough, No Dry, No Shortness of breath, No SOB with excertion, No Wheezing, No Hemoptysis, No Pleuritic Pain, No Sputum, No Other Gastrointestinal: No Nausea, No Vomiting; Abdominal Pain; No Diarrhea, No Constipation, No Melena, No Hematochezia, No Other Genitourinary: No Dysuria, No Frequency, No Incontinence, No Hematuria, No Retention, No Other Musculoskeletal: No other, No neck pain, No shoulder pain, No arm pain, No back pain, No hand pain, No leg pain, No foot pain Skin: No Rash, No Lesions, No Jaundice, No Bruising, No Other Objective Vitals Vital Signs Date Time Temp Pulse Resp B/P (MAP) Pulse Ox O2 Delivery O2 Flow Rate FiO2 09/14/24 13:00 98.7 85 20 123/86 (98) 95 98.7 09/14/24 03:56 Room Air* 0 21 Medications Current Medications Medications Dose Ordered Sig/Antony Route Start Time Stop Time Status Last Admin Dose Admin Sodium Chloride 10 ml Q8HR IV 09/13/24 22:00 09/14/24 13:31 10 ML Acetaminophen/ Hydrocodone Bitart 1 tab Q4HP PRN PO 09/13/24 15:00 Ondansetron HCl 4 mg Q4HP PRN IV 09/13/24 15:00 Docusate Sodium 100 mg BIDPRN PRN PO 09/13/24 15:00 Acetaminophen 650 mg Q6HP PRN PO 09/13/24 15:00 Nitroglycerin 0.4 mg Q5MINP PRN SL 09/13/24 15:00 Morphine Sulfate 2 mg Q30M PRN IV 09/13/24 15:00 Aspirin 81 mg DAILY PO 09/14/24 10:00 09/14/24 08:59 81 MG Atorvastatin Calcium 20 mg HS PO 09/13/24 22:00 09/13/24 23:06 20 MG Laboratory Results Laboratory Tests 09/14/24 07:47 Chemistry Test 09/14/24 07:47 Albumin 4.5 g/dL (3.2-4.8) Calcium Level 10.0 mg/dL (8.7-10.4) Total Protein 7.4 g/dL (5.7-8.2) Lipid panel Test 09/14/24 07:47 Cholesterol Level 199 mg/dL (< 200) HDL Cholesterol 42 mg/dL (40-59) Triglycerides Level 98 mg/dL (< 150) LFT Test 09/14/24 07:47 Alanine Aminotransferase (ALT) 15 U/L (7-40) Alkaline Phosphatase 70 U/L (46-116) Aspartate Amino Transferase (AST) 13 U/L (13-40) Total Bilirubin 0.6 mg/dL (0.2-1.0) HgA1c, TSH Test 09/14/24 07:47 Hemoglobin A1c 5.8 % A1C (<5.7) H Urinalysis Test 09/13/24 10:10 Urine Color Light-yellow (Yellow) Urine Clarity Clear (Clear) Urine pH 7.5 (5.0-9.0) Urine Specific [place] 1.020 (1.001-1.035) Urine Protein Negative (Negative) Urine Ketones Negative (Negative) Urine Blood Negative /uL (Negative) Urine Nitrite Negative (Negative) Urine Bilirubin Negative (Negative) Urine Urobilinogen Normal mg/dL (Negative) Urine Leukocyte Esterase Negative /uL (Negative) Urine RBC 2 /hpf (0 - 3) Urine Microscopic WBC < 1 /HPF (0-3) Urine Squamous Epithelial Cells Few /hpf (<5) Urine Bacteria None seen /hpf (None Seen) Urine Glucose Normal mg/dL (Normal) Assessment/Plan Assessment/Plan Walter CarusoBar putnam is a 53-year-old male with no significant past medical history, however he also states he does not go to the doctor. Patient states he came in today for abdominal pain. Patient states he has been experiencing intermittent abdominal pain for about 1 month. He came in today due to it worsening. Denies any nausea, vomiting or diarrhea. Patient has taken ibuprofen and Nexium without any relief. Patient had an EKG completed in the ER that was abnormal. Patient denies any history of chest pain, palpitations, and shortness of breath. Patient will be admitted for further workup. At time of assessment he states his abdominal pain has improved from the medications given by ER. Abnormal EKG, Intractable abdominal pain, Diverticulosis, Gallstones gallbladder stone # Intermittent abdominal pain ruled out acute intra-abdominal pathology # Sigmoid diverticulosis # Prediabetic being evaluated by cardiology Plan discussed with: Patient Date of Service: Sep 14, 2024 Billing Provider: RODOLFO ORTIZ DO Common Visit Codes: [id number] INP/OBS CARE(HIGH) RODOLFO ORTIZ DO Sep 14, 2024 14:31
--- NOTE | 2024-09-14 17:01 | DVHCONRES ---
Date Seen: Sep 14, 2024 Resident Creating Document: MARTIN MATUTE RESIDENT Referring Physician Bri LAWRENCE History of Present Illness This is a 53-year-old male who comes into the ED with chief complain of abdominal pain.Patient stated that he has been experiencing lower abdominal pain for the last month, he says it is mostly intermittent but since last week it has been constant, pressure-like, ibuprofen has provided mild relief. He denies any chest pain, shortness of breath, dizziness, lightheadedness, nausea, vomiting. He also denies any numbness, weakness, tingling. In the ED they performed a chest x-ray which was unremarkable, a CT of the abdomen did not show any acute finding. An EKG demonstrated a heart rate of 80, regular rhythm, right axis deviation, no signs of hypertrophy, no ST changes, an RBBB, with LPFB. Patient's blood work was unremarkable, he continues to state having mild lower quadrant abdominal pain, he was admitted for further investigation and management. Patient was seen and examined on the bedside. He is alert oriented x3. Complains mild lower abdominal pain. CT abdomen pelvis with IV contrast revealed sigmoid diverticulosis and gallstone. Recommended soft diet and patient is stable for discharge from GI standpoint and also recommended outpatient Surveillance colonoscopy after discharge. Family History: Patient reports no known family medical history. Allergies: Coded Allergies: NO KNOWN ALLERGIES (Unverified , 09/13/24) Current Medications Current Medications Medications (Trade) Dose Ordered Sig/Antony Route PRN Reason Start Time Stop Time Status Last Admin Sodium Chloride (Saline Lock Ns) 10 ml Q8HR IV 09/13/24 22:00 09/14/24 13:31 Aspirin 81 mg DAILY PO 09/14/24 10:00 09/14/24 08:59 Atorvastatin Calcium (Lipitor) 20 mg HS PO 09/13/24 22:00 09/13/24 23:06 Vital Signs Vital Signs Date Time Temp Pulse Resp B/P (MAP) Pulse Ox O2 Delivery O2 Flow Rate FiO2 09/14/24 13:00 98.7 85 20 123/86 (98) 95 98.7 09/14/24 03:56 Room Air* 0 21 Physical Exam Physical examination: General Appearance: Alert, Oriented X3, Cooperative, No acute distress HEENT: Atraumatic, PERRLA, EOMI, Mucous membrane moist/pink Respiratory: Clear to auscultation, Normal air movement Cardiovascular: Regular rate, Normal S1, Normal S2, No murmurs, no chest wall tenderness Abdominal: Normal bowel sounds, Soft, No tenderness, No hepatospenomegaly, No masses Extremities: No clubbing, No cyanosis, No edema, Normal pulses, No tende rness/swelling Skin: No rashes, No breakdown, No significant lesion Neuro: Normal gait, Normal speech, Strength at 5/5 X4 ext, Normal tone, Sensation intact, grossly intact cranial nerves. Psych/Mental Status: Mental status NL, Mood NL Labs/Diagnostic Data Labs Test 09/14/24 07:47 09/13/24 10:49 09/13/24 10:10 09/13/24 09:53 Range/Units White Blood Count 7.2 # 4.4-10.8 10^3/uL Red Blood Count 4.84 4.5-5.90 10^6/uL Hemoglobin 15.0 13.5-17.5 g/dL Hematocrit 44.1 # 41.0-53.0 % Mean Corpuscular Volume 91.2 80.0-100.0 fL Mean Corpuscular Hemoglobin 31.0 28.0-32.0 pg Mean Corpuscular Hemoglobin Concent 34.0 32.0-36.0 g/dL Red Cell Distribution Width 13.6 11.8-14.3 % Platelet Count 273 140-450 10^3/uL Mean Platelet Volume 7.4 6.9-10.8 fL Neutrophils (%) (Auto) 72.8 37.0-80.0 % Lymphocytes (%) (Auto) 15.9 10.0-50.0 % Monocytes (%) (Auto) 9.4 0.0-12.0 % Eosinophils (%) (Auto) 1.3 0.0-7.0 % Basophils (%) (Auto) 0.6 0.0-2.0 % Neutrophils # (Auto) 5.2 1.6-8.6 10 ^3/uL Lymphocytes # (Auto) 1.1 0.4-5.4 10 ^3/uL Monocytes # (Auto) 0.7 0-1.3 10 ^3/uL Eosinophils # (Auto) 0.1 0-0.8 10 ^3/uL Basophils # (Auto) 0 0-0.2 10 ^3/uL Nucleated Red Blood Cells 0.0 % Sodium Level 137 136-145 mmol/L Potassium Level 4.0 3.5-5.1 mmol/L Chloride Level 104 98-107 mmol/L Carbon Dioxide Level 27 20-31 mmol/L Anion Gap 6 5-15 Blood Urea Nitrogen 14 9-23 mg/dL Creatinine 0.86 0.700-1.30 mg/dL Glomerular Filtration Rate Calc 103 >90 mL/min BUN/Creatinine Ratio 16.3 10.0-20.0 Serum Glucose 118 H 74-106 mg/dL Hemoglobin A1c 5.8 H <5.7 % A1C Calcium Level 10.0 8.7-10.4 mg/dL Total Bilirubin 0.6 0.2-1.0 mg/dL Aspartate Amino Transferase (AST) 13 13-40 U/L Alanine Aminotransferase (ALT) 15 7-40 U/L Alkaline Phosphatase 70 46-116 U/L Total Protein 7.4 5.7-8.2 g/dL Albumin 4.5 3.2-4.8 g/dL Triglycerides Level 98 < 150 mg/dL Cholesterol Level 199 < 200 mg/dL LDL Cholesterol 147 H < 100 mg/dL HDL Cholesterol 42 40-59 mg/dL Magnesium Level 2.0 1.6-2.6 mg/dL Troponin I High Sensitivity < 3 L </=54 ng/L C-Reactive Protein High Sensitivity 0.31 <1.0 mg/dL Urine Color Light-yellow Yellow Urine Clarity Clear Clear Urine pH 7.5 5.0-9.0 Urine Specific [place] 1.020 1.001-1.035 Urine Protein Negative Negative Urine Ketones Negative Negative Urine Blood Negative Negative /uL Urine Nitrite Negative Negative Urine Bilirubin Negative Negative Urine Urobilinogen Normal Negative mg/dL Urine Leukocyte Esterase Negative Negative /uL Urine RBC 2 0 - 3 /hpf Urine Microscopic WBC < 1 0-3 /HPF Urine Squamous Epithelial Cells Few <5 /hpf Urine Bacteria None seen None Seen /hpf Urine Glucose Normal Normal mg/dL Lactic Acid Level 1.1 0.4-2.0 mmol/L B-Type Natriuretic Peptide 6.77 0-100 pg/mL Assessment Assessment: # Intermittent abdominal pain ruled out acute intra-abdominal pathology # Asymptomatic cholelithiasis # Sigmoid diverticulosis # Prediabetic Plan: - Pain medication and laxative as per primary - Soft diet - Patient is stable for discharge from GI standpoint - Recommended follow up with Dr. Luna for elective outpatient surveillance colonoscopy Plan discussed with Dr. Luna Plan discussed with: Patient, Other MARTIN MATUTE RESIDENT Sep 14, 2024 17:00
[2024-09-14 17:16] VITALS: BP 124/81; PULSE 69; RESP 20; TEMP 98.2; O2SAT 95
[2024-09-14 20:00] VITALS: PULSE 71; PULSE 73; RESP 18; O2SAT 95
[2024-09-14 21:00] VITALS: BP 126/76; PULSE 71; RESP 18; TEMP 98.2; O2SAT 95
[2024-09-14] MEDS: GOLYTELY 4L KIT PO ONE (21:09)
[2024-09-15] VITALS (11 sets, daily range): BP systolic 109–176; BP diastolic 72–107; PULSE 63–79; RESP 16–20; TEMP 97.7–98.7; O2SAT 93–99
[2024-09-15] MEDS: MAGNESIUM CITRATE SOLUTION 300 ML BTL PO ONE (05:53)
[2024-09-15] MEDS: GOLYTELY 4L KIT PO ONE (05:53)
[2024-09-15] MEDS ORDERED: SODIUM CHLORIDE LOCK 10 ML ONE (10:06)
[2024-09-15] MEDS: fentaNYL CITRATE 100 MCG/2 ML VL ONE (10:58)
[2024-09-15] MEDS: diphenhdrAMINE HCL 50 MG/1 ML VL ONE (10:58)
[2024-09-15] MEDS: MIDAZOLAM HCL 5 MG/ML-1ML VIAL ONE (10:58)
--- NOTE | 2024-09-15 12:03 | DVHOP2 ---
Operative Report DATE OF OPERATION: 09/15/24 PROCEDURE: Diagnostic Colonoscopy. PREOPERATIVE INDICATION: The patient is a 53 -year-old male undergoing colonoscopy for left lower quadrant pain and discomfort POSTOPERATIVE DIAGNOSES: 1. Moderate sigmoid diverticular disease without any evidence of diverticulitis 2. Trace internal hemorrhoids otherwise normal examination up to the cecum and terminal ileum PROCEDURE PERFORMED BY: Shena Luna M.D. SCOPE: Olympus videocolonoscope. ASA CLASS: 2. PREOPERATIVE MEDICATIONS: Versed 4 mg, Fentanyl 100 mcg, Benadryl 50 mg PROCEDURE IN DETAIL: After obtaining an informed consent, the patient was placed on left lateral decubitus position. He was then sedated with the above medications. A rectal examination was performed that was normal. The colonoscope was then passed through the anus into the rectosigmoid and through the descending, transverse, and ascending colon up to the cecum with visualization of the appendiceal orifice, base of the cecum and the ileocecal valve. The colonoscope was then withdrawn. The distal 5 cm of the terminal ileum were normal No polyps or masses were seen. There were no colitis. Patient had moderate sigmoid diverticular disease with sigmoid muscular hypertrophy but no clear-cut evidence of diverticulitis On retroflexion he had trace internal hemorrhoids. The patient tolerated the procedure well without difficulty. WITHDRAWAL TIME: 6 minutes QUALITY OF THE PREP: [place] Bowel Prep score: COMPLICATIONS : None SPECIMENS: None DISPOSITION: Transfer back to the floor Stable PLAN: 1. Repeat colonoscopy in 10 years 2. Resume GI soft diet advance as tolerated 3. Patient is stable for discharge from GI point of view 4. Outpatient follow up with GI Services as needed SHENA LUNA MD Sep 15, 2024 12:03
[2024-09-15 14:14] LABS: INR 1.02 (0.9-1.15); Partial Thromboplastin Time 29.8 SEC (24.5-34.5); Prothrombin Time 10.8 sec (9.3-11.8)
[2024-09-16] VITALS (7 sets, daily range): BP systolic 117–141; BP diastolic 80–91; PULSE 72–86; RESP 16–18; TEMP 36.7; O2SAT 94–97
--- NOTE | 2024-09-16 11:15 | DVHINCON2 ---
Date of service: Sep 16, 2024 Family History: Patient reports no known family medical history. Allergies: Coded Allergies: NO KNOWN ALLERGIES (Unverified , 09/13/24) Vital Signs Vital Signs Date Time Temp Pulse Resp B/P (MAP) Pulse Ox O2 Delivery O2 Flow Rate FiO2 09/16/24 08:45 98.8 79 18 117/83 (94) 94 98.8 09/16/24 08:00 Room Air* 0 21 Labs/Diagnostic Data Labs Test 09/15/24 13:26 09/14/24 07:47 09/13/24 10:49 09/13/24 10:10 Range/Units Prothrombin Time 10.8 9.3-11.8 sec Prothrombin Time INR 1.02 0.9-1.15 Activated Partial Thromboplast Time 29.8 24.5-34.5 SEC White Blood Count 7.2 # 4.4-10.8 10^3/uL Red Blood Count 4.84 4.5-5.90 10^6/uL Hemoglobin 15.0 13.5-17.5 g/dL Hematocrit 44.1 # 41.0-53.0 % Mean Corpuscular Volume 91.2 80.0-100.0 fL Mean Corpuscular Hemoglobin 31.0 28.0-32.0 pg Mean Corpuscular Hemoglobin Concent 34.0 32.0-36.0 g/dL Red Cell Distribution Width 13.6 11.8-14.3 % Platelet Count 273 140-450 10^3/uL Mean Platelet Volume 7.4 6.9-10.8 fL Neutrophils (%) (Auto) 72.8 37.0-80.0 % Lymphocytes (%) (Auto) 15.9 10.0-50.0 % Monocytes (%) (Auto) 9.4 0.0-12.0 % Eosinophils (%) (Auto) 1.3 0.0-7.0 % Basophils (%) (Auto) 0.6 0.0-2.0 % Neutrophils # (Auto) 5.2 1.6-8.6 10 ^3/uL Lymphocytes # (Auto) 1.1 0.4-5.4 10 ^3/uL Monocytes # (Auto) 0.7 0-1.3 10 ^3/uL Eosinophils # (Auto) 0.1 0-0.8 10 ^3/uL Basophils # (Auto) 0 0-0.2 10 ^3/uL Nucleated Red Blood Cells 0.0 % Sodium Level 137 136-145 mmol/L Potassium Level 4.0 3.5-5.1 mmol/L Chloride Level 104 98-107 mmol/L Carbon Dioxide Level 27 20-31 mmol/L Anion Gap 6 5-15 Blood Urea Nitrogen 14 9-23 mg/dL Creatinine 0.86 0.700-1.30 mg/dL Glomerular Filtration Rate Calc 103 >90 mL/min BUN/Creatinine Ratio 16.3 10.0-20.0 Serum Glucose 118 H 74-106 mg/dL Hemoglobin A1c 5.8 H <5.7 % A1C Calcium Level 10.0 8.7-10.4 mg/dL Total Bilirubin 0.6 0.2-1.0 mg/dL Aspartate Amino Transferase (AST) 13 13-40 U/L Alanine Aminotransferase (ALT) 15 7-40 U/L Alkaline Phosphatase 70 46-116 U/L Total Protein 7.4 5.7-8.2 g/dL Albumin 4.5 3.2-4.8 g/dL Triglycerides Level 98 < 150 mg/dL Cholesterol Level 199 < 200 mg/dL LDL Cholesterol 147 H < 100 mg/dL HDL Cholesterol 42 40-59 mg/dL Magnesium Level 2.0 1.6-2.6 mg/dL Troponin I High Sensitivity < 3 L </=54 ng/L C-Reactive Protein High Sensitivity 0.31 <1.0 mg/dL Urine Color Light-yellow Yellow Urine Clarity Clear Clear Urine pH 7.5 5.0-9.0 Urine Specific [place] 1.020 1.001-1.035 Urine Protein Negative Negative Urine Ketones Negative Negative Urine Blood Negative Negative /uL Urine Nitrite Negative Negative Urine Bilirubin Negative Negative Urine Urobilinogen Normal Negative mg/dL Urine Leukocyte Esterase Negative Negative /uL Urine RBC 2 0 - 3 /hpf Urine Microscopic WBC < 1 0-3 /HPF Urine Squamous Epithelial Cells Few <5 /hpf Urine Bacteria None seen None Seen /hpf Urine Glucose Normal Normal mg/dL Test 09/13/24 09:53 Range/Units Lactic Acid Level 1.1 0.4-2.0 mmol/L B-Type Natriuretic Peptide 6.77 0-100 pg/mL Assessment [id number] ASYMPTOMATIC CHOLELITHIASIS WBC WNL LFT WNL US RUQ TO R/O AC CHOLECYSTITIS Plan discussed with: WALESKA Oliveros MD Sep 16, 2024 11:15
--- NOTE | 2024-09-16 12:24 | DVHINCON2 ---
DATE OF CONSULTATION: 09/16/2024 HISTORY OF PRESENT ILLNESS: This patient is 53 years old, coming in with lower abdominal pain and was admitted for observation and workup. No nausea, vomiting. No constipation, diarrhea. No fever or chills. PAST MEDICAL HISTORY: No diabetes, hypertension. PAST SURGICAL HISTORY: Tonsillectomy. PHYSICAL EXAMINATION: VITAL SIGNS: Afebrile, stable signs. HEENT: With no evidence of pallor, cyanosis, or jaundice. NECK: Supple, nontender with no thyromegaly, lymphadenopathy. CHEST AND LUNGS: Clear. HEART: Within normal limits. ABDOMEN: Soft, minimally tender. No rebound. EXTREMITIES: Unremarkable. NEUROLOGIC: Intact. CLINICAL IMPRESSION: Rule out acute cholecystitis. He does have gallstones on the ultrasound, but there is no evidence of acute inflammation to the gallbladder and he does have sigmoid diverticulosis, but this is not related to diverticulitis and my clinical impression is asymptomatic cholelithiasis. PLAN: Will be to keep him under close observation and obtaining an ultrasound of the gallbladder to determine the need for surgery. MD DILIP Oviedo/BAILEY TID: [id number] RECEIPT: [id number] cc: Andrés Villegas
--- NOTE | 2024-09-16 14:16 | DVHPN2 ---
Progress Note Date Seen: Sep 16, 2024 Resident Creating Document: MARTIN MATUTE RESIDENT Medical Necessity Reason Pt with a Central, PICC or Fol: No Subjective Review of Systems Patient was seen and examined on the bedside. He is alert oriented x3. Complaint of lower abdominal pain. The patient underwent diagnostic colonoscopy yesterday and revealed moderate sigmoid diverticular disease without any evidence of diverticulitis, trace internal hemorrhoids otherwise normal examination up to cecum and terminal ileum. CT abdomen pelvis revealed cholelithiasis and surgery was consulted for subsequent evaluation and management of asymptomatic cholelithiasis. Objective vital signs Vital Sign Date Time Temp Pulse Resp B/P (MAP) Pulse Ox O2 Delivery O2 Flow Rate FiO2 09/16/24 08:45 98.8 79 18 117/83 (94) 94 98.8 09/16/24 08:00 Room Air* 0 21 Total Intake and Output 09/15/24 09/15/24 09/16/24 15:00 23:00 07:00 Intake Total 100 ml 480 ml Balance 100 ml 480 ml medications Current Medications Medications Dose Ordered Sig/Antony Route Start Time Stop Time Status Last Admin Dose Admin Sodium Chloride 10 ml Q8HR IV 09/13/24 22:00 09/16/24 05:44 10 ML Acetaminophen/ Hydrocodone Bitart 1 tab Q4HP PRN PO 09/13/24 15:00 Ondansetron HCl 4 mg Q4HP PRN IV 09/13/24 15:00 Docusate Sodium 100 mg BIDPRN PRN PO 09/13/24 15:00 Acetaminophen 650 mg Q6HP PRN PO 09/13/24 15:00 Nitroglycerin 0.4 mg Q5MINP PRN SL 09/13/24 15:00 Morphine Sulfate 2 mg Q30M PRN IV 09/13/24 15:00 Aspirin 81 mg DAILY PO 09/14/24 10:00 09/14/24 08:59 81 MG Atorvastatin Calcium 20 mg HS PO 09/13/24 22:00 09/15/24 21:18 20 MG Examination Physical examination: General Appearance: Alert, Oriented X3, Cooperative, No acute distress HEENT: Atraumatic, PERRLA, EOMI, Mucous membrane moist/pink Respiratory: Clear to auscultation, Normal air movement Cardiovascular: Regular rate, Normal S1, Normal S2, No murmurs, no chest wall tenderness Abdominal: Normal bowel sounds, Soft, No tenderness, No hepatospenomegaly, No masses Extremities: No clubbing, No cyanosis, No edema, Normal pulses, No tenderness/swelling Skin: No rashes, No breakdown, No significant lesion Neuro: Normal gait, Normal speech, Strength at 5/5 X4 ext, Normal tone, Sensation intact, grossly intact cranial nerves Psych/Mental Status: Mental status NL, Mood NL laboratory and microbiology Laboratory Tests 09/14/24 07:47 Test 09/14/24 07:47 Range/Units Serum Glucose 118 H 74-106 mg/dL Labs and/or images reviewed: Labs reviewed by me, Image(s) reviewed by me Problem List/Assessment/Plan Problem List/Assessment/Plan Assessment: # Intermittent abdominal pain ruled out acute intra-abdominal pathology # Asymptomatic cholelithiasis # Sigmoid diverticulosis # Prediabetic Colonoscopy on 09/15/24 demonstrated moderate sigmoid diverticular disease without any evidence of diverticulitis and trace internal hemorrhoids otherwise normal examination up to the cecum and terminal ileum . Plan: - Pain medication and laxative as per primary - NPO as per Surgery - Surgery on board for evaluation and management of asymptomatic cholelithiasis - Will follow the patient. Plan discussed with Dr. Luna Plan discussed with: Patient, Other MARTIN MATUTE RESIDENT Sep 16, 2024 14:16
[2024-09-16] MEDS: HYDROcodone-ACET 5/325MG TAB PO PRN (16:16)
--- NOTE | 2024-09-16 16:39 | DVH ---
EXAM: US GALLBLADDER CLINICAL HISTORY: GALL STONES TECHNIQUE: Grayscale and limited color flow doppler ultrasound of the right upper quadrant is perfor med. COMPARISON: None Findings: Liver measures 14.6 cm in length with increased echotexture and contour. No evidence of focal hepatic lesions or intra- or extrahepatic ductal dilatation. Common bile duct measures 0.3 cm in diameter. N ormal hepatopedal flow noted within the portal vein. No perihepatic free fluid is noted. Gallbladder appears within normal limits with gallbladder wall thickness measuring 0.2 cm. There are shadowing calculi. No evidence of biliary sludge or pericholecystic fluid. Negative sonographic Anila y's sign. Pancreas not well-visualized due to overlying bowel gas. Right kidney measures 10.7 cm with normal contours, echotexture and cortical thickness. No evidence o f hydronephrosis, calculi, cystic or solid renal lesions. Partially visualized inferior vena cava unremarkable. Impression: 1. No evidence of acute right upper quadrant abnormalities. 2. Hepatic steatosis. 3. Cholelithiasis without evidence of acute cholecystitis.
--- NOTE | 2024-09-16 16:55 | DVHPN2 ---
Reviewed: Care Plan, H&P, Labs, Medications, Previous Orders, Radiology Changes from previous H/P or p: No Changes General: Per HPI Eyes: No Pain, No Vision change, No Conjunctivae inflammation, No Eyelid inflammation, No Other, No Redness ENT: No Ear pain, No Ear discharge, No Nose pain, No Nose discharge, No Nose congestion, No Mouth pain, No Mouth swelling, No Throat pain, No Throat swelling, No Other Cardiovascular: No Chest Pain, No Palpitations, No Orthopnea, No Paroxysmal Noc. Dyspnea, No Edema, No Lt Headedness, No Other Respiratory: No Cough, No Dry, No Shortness of breath, No SOB with excertion, No Wheezing, No Hemoptysis, No Pleuritic Pain, No Sputum, No Other Gastrointestinal: No Nausea, No Vomiting; Abdominal Pain; No Diarrhea, No Constipation, No Melena, No Hematochezia, No Other Genitourinary: No Dysuria, No Frequency, No Incontinence, No Hematuria, No Retention, No Other Musculoskeletal: No other, No neck pain, No shoulder pain, No arm pain, No back pain, No hand pain, No leg pain, No foot pain Skin: No Rash, No Lesions, No Jaundice, No Bruising, No Other Objective Vitals Vital Signs Date Time Temp Pulse Resp B/P (MAP) Pulse Ox O2 Delivery O2 Flow Rate FiO2 09/16/24 12:40 98.0 86 18 124/85 (98) 97 98.0 09/16/24 08:00 Room Air* 0 21 Intake/Output Intake and Output 09/16/24 07:00 Intake Total 580 ml Balance 580 ml Intake Oral 480 ml IV Total 100 ml # Voids 2 # Bowel Movements 2 Medications Current Medications Medications Dose Ordered Sig/Antony Route Start Time Stop Time Status Last Admin Dose Admin Sodium Chloride 10 ml Q8HR IV 09/13/24 22:00 09/16/24 14:48 10 ML Acetaminophen/ Hydrocodone Bitart 1 tab Q4HP PRN PO 09/13/24 15:00 09/16/24 16:16 1 TAB Ondansetron HCl 4 mg Q4HP PRN IV 09/13/24 15:00 Docusate Sodium 100 mg BIDPRN PRN PO 09/13/24 15:00 Acetaminophen 650 mg Q6HP PRN PO 09/13/24 15:00 Nitroglycerin 0.4 mg Q5MINP PRN SL 09/13/24 15:00 Morphine Sulfate 2 mg Q30M PRN IV 09/13/24 15:00 Aspirin 81 mg DAILY PO 09/14/24 10:00 09/14/24 08:59 81 MG Atorvastatin Calcium 20 mg HS PO 09/13/24 22:00 09/15/24 21:18 20 MG Laboratory Results Laboratory Tests 09/14/24 07:47 Urinalysis Test 09/13/24 10:10 Urine Color Light-yellow (Yellow) Urine Clarity Clear (Clear) Urine pH 7.5 (5.0-9.0) Urine Specific [place] 1.020 (1.001-1.035) Urine Protein Negative (Negative) Urine Ketones Negative (Negative) Urine Blood Negative /uL (Negative) Urine Nitrite Negative (Negative) Urine Bilirubin Negative (Negative) Urine Urobilinogen Normal mg/dL (Negative) Urine Leukocyte Esterase Negative /uL (Negative) Urine RBC 2 /hpf (0 - 3) Urine Microscopic WBC < 1 /HPF (0-3) Urine Squamous Epithelial Cells Few /hpf (<5) Urine Bacteria None seen /hpf (None Seen) Urine Glucose Normal mg/dL (Normal) Assessment/Plan Assessment/Plan Bar Calle is a 53-year-old male with no significant past medical history, however he also states he does not go to the doctor. Patient states he came in today for abdominal pain. Patient states he has been experiencing intermittent abdominal pain for about 1 month. He came in today due to it worsening. Denies any nausea, vomiting or diarrhea. Patient has taken ibuprofen and Nexium without any relief. Patient had an EKG completed in the ER that was abnormal. Patient denies any history of chest pain, palpitations, and shortness of breath. Patient will be admitted for further workup. At time of assessment he states his abdominal pain has improved from the medications given by ER. Abnormal EKG, Intractable abdominal pain, Diverticulosis, Gallstones gallbladder stone # Intermittent abdominal pain ruled out acute intra-abdominal pathology # Sigmoid diverticulosis # Prediabetic being evaluated by cardiology/GI Plan discussed with: Patient Date of Service: Sep 15, 2024 Billing Provider: RODOLFO ORTIZ DO Common Visit Codes: [id number] INP/OBS CARE(HIGH) RODOLFO ORTIZ DO Sep 16, 2024 16:55
[2024-09-16] MEDS ORDERED: ASPI-325 PO (16:57)
[2024-09-16] MEDS ORDERED: ATOR20TA50 PO (16:57)
--- NOTE | 2024-09-16 16:58 | DVHDS2 ---
Discharge Summary Date of Admission Sep 13, 2024 at 14:52 Date of Discharge: Sep 16, 2024 Labs/Diagnostic Data: Laboratory Results Test 09/15/24 13:26 09/14/24 07:47 09/13/24 10:49 09/13/24 10:10 Prothrombin Time 10.8 sec (9.3-11.8) Prothrombin Time INR 1.02 (0.9-1.15) Activated Partial Thromboplast Time 29.8 SEC (24.5-34.5) White Blood Count 7.2 10^3/uL (4.4-10.8) Red Blood Count 4.84 10^6/uL (4.5-5.90) Hemoglobin 15.0 g/dL (13.5-17.5) Hematocrit 44.1 % (41.0-53.0) Mean Corpuscular Volume 91.2 fL (80.0-100.0) Mean Corpuscular Hemoglobin 31.0 pg (28.0-32.0) Mean Corpuscular Hemoglobin Concent 34.0 g/dL (32.0-36.0) Red Cell Distribution Width 13.6 % (11.8-14.3) Platelet Count 273 10^3/uL (140-450) Mean Platelet Volume 7.4 fL (6.9-10.8) Neutrophils (%) (Auto) 72.8 % (37.0-80.0) Lymphocytes (%) (Auto) 15.9 % (10.0-50.0) Monocytes (%) (Auto) 9.4 % (0.0-12.0) Eosinophils (%) (Auto) 1.3 % (0.0-7.0) Basophils (%) (Auto) 0.6 % (0.0-2.0) Neutrophils # (Auto) 5.2 10 ^3/uL (1.6-8.6) Lymphocytes # (Auto) 1.1 10 ^3/uL (0.4-5.4) Monocytes # (Auto) 0.7 10 ^3/uL (0-1.3) Eosinophils # (Auto) 0.1 10 ^3/uL (0-0.8) Basophils # (Auto) 0 10 ^3/uL (0-0.2) Nucleated Red Blood Cells 0.0 % Sodium Level 137 mmol/L (136-145) Potassium Level 4.0 mmol/L (3.5-5.1) Chloride Level 104 mmol/L (98-107) Carbon Dioxide Level 27 mmol/L (20-31) Anion Gap 6 (5-15) Blood Urea Nitrogen 14 mg/dL (9-23) Creatinine 0.86 mg/dL (0.700-1.30) Glomerular Filtration Rate Calc 103 mL/min (>90) BUN/Creatinine Ratio 16.3 (10.0-20.0) Serum Glucose 118 mg/dL (74-106) Hemoglobin A1c 5.8 % A1C (<5.7) Calcium Level 10.0 mg/dL (8.7-10.4) Total Bilirubin 0.6 mg/dL (0.2-1.0) Aspartate Amino Transferase (AST) 13 U/L (13-40) Alanine Aminotransferase (ALT) 15 U/L (7-40) Alkaline Phosphatase 70 U/L (46-116) Total Protein 7.4 g/dL (5.7-8.2) Albumin 4.5 g/dL (3.2-4.8) Triglycerides Level 98 mg/dL (< 150) Cholesterol Level 199 mg/dL (< 200) LDL Cholesterol 147 mg/dL (< 100) HDL Cholesterol 42 mg/dL (40-59) Magnesium Level 2.0 mg/dL (1.6-2.6) Troponin I High Sensitivity < 3 ng/L (</=54) C-Reactive Protein High Sensitivity 0.31 mg/dL (<1.0) Urine Color Light-yellow (Yellow) Urine Clarity Clear (Clear) Urine pH 7.5 (5.0-9.0) Urine Specific [place] 1.020 (1.001-1.035) Urine Protein Negative (Negative) Urine Ketones Negative (Negative) Urine Blood Negative /uL (Negative) Urine Nitrite Negative (Negative) Urine Bilirubin Negative (Negative) Urine Urobilinogen Normal mg/dL (Negative) Urine Leukocyte Esterase Negative /uL (Negative) Urine RBC 2 /hpf (0 - 3) Urine Microscopic WBC < 1 /HPF (0-3) Urine Squamous Epithelial Cells Few /hpf (<5) Urine Bacteria None seen /hpf (None Seen) Urine Glucose Normal mg/dL (Normal) Test 09/13/24 09:53 Lactic Acid Level 1.1 mmol/L (0.4-2.0) B-Type Natriuretic Peptide 6.77 pg/mL (0-100) Other Laboratory Tests 09/14/24 07:47 Brief Hx & Hospital Course: Bar Calle is a 53-year-old male with no significant past medical history, however he also states he does not go to the doctor. Patient states he came in today for abdominal pain. Patient states he has been experiencing intermittent abdominal pain for about 1 month. He came in today due to it worsening. Denies any nausea, vomiting or diarrhea. Patient has taken ibuprofen and Nexium without any relief. Patient had an EKG completed in the ER that was abnormal. Patient denies any history of chest pain, palpitations, and shortness of breath. Patient will be admitted for further workup. At time of assessment he states his abdominal pain has improved from the medications given by ER.\\ Abnormal EKG, Intractable abdominal pain, Diverticulosis, Gallstones gallbladder stone # Intermittent abdominal pain ruled out acute intra-abdominal pathology # Sigmoid diverticulosis # Prediabetic pt underwent colonoscopy per GI and needs to follow up outpatient no surgery from Gen Surg cardiology cleared pt discharged to home with self care Condition at Discharge: Good Final Diagnosis/Problems List see above Discharge Disposition: Home Discharge Instruct/Medications Diet: Cardiac 2g Na,low cholest Activity: No Restrictions, As Tolerated Discharge Statement: "Patient was advised to return to the ER or call 911 if any headaches, dizziness, shortness of breath, chest pain, abdominal pain, bleeding, fevers, or worsening of medical condition. Patient was counseled about treatment plan, medications, possible side effects, patientverbalized understanding. All questions were answered to the best of my ability. This discharge took greater then 30 minutes in planning, reviewing documentation, counseling the patient, and discussing with other team members." ASSESSMENT ASSESSMENT Assessment Date of Service: Sep 16, 2024 Billing Provider: RODOLFO ORTIZ DO Common Visit Codes: [id number]/OBS DISCH DAY >30min RODOLFO ORTIZ DO Sep 16, 2024 16:58
== END 2024-09-16 17:30 | disposition home or self-care (01) ==
LOC: ER 09:29 → OVERFLOW 14:52 → TELE-WESTW 09-14 16:29
PROVIDERS: ADMIT Nurse Practitioner Family; ATTEND Internal Medicine
PROC: 0DJD8ZZ Inspection of Lower Intestinal Tract, Via Natural or Artificial Opening Endoscopic (ICD-10-PCS; principal; 2024-09-15 10:55)
DX: K80.20 Calculus of gallbladder without cholecystitis without obstruction (principal); K57.30 Diverticulosis of large intestine without perforation or abscess without bleeding; K64.8 Other hemorrhoids; R73.03 Prediabetes; Z79.82 Long term (current) use of aspirin
CPT/HCPCS: 36415; 45378; 71046; 74177; 76705; 80053; 80061; 81001; 83036; 83605; 83735; 83880; 84484; 85025; 85610; 85730; 86141; 93005; 96374; 96375; G0378; J2250; J2405